=== PATIENT | male | born 1985 | race Caucasian/White ===

== ENCOUNTER 2017-06-13 22:26 | Emergency (ER) | payer OTHER ==
[2017-06-13 22:52] VITALS: BP 171/76; PULSE 80; TEMP 98; BMI 29.1
[2017-06-13] MEDS ORDERED: IBUPROFEN 400 MG TABLET (FP) PO ONE ×2 (23:47→23:56)
[2017-06-13] MEDS ORDERED: BACITRACIN 0.9 GM PACKET ONE (23:52)
[2017-06-14] MEDS ORDERED: IBUPROFEN 600 MG TABLET (FP) PO ONE ×2 (00:23→00:24)
--- NOTE | 2017-06-14 00:40 | PDOC ---
History of Present Illness - General Chief Complaint: Non EmpBld/Body Flud Exposure Stated Complaint: INJURY,EXPOSURE Time Seen by Provider: 06/13/17 23:30 Past History - Past Medical History Allergies/Adverse Reactions: Allergies Allergy/AdvReac Type Severity Reaction Status Date / Time No Known Allergies Allergy Verified 06/13/17 22:52 Home Medications: Ambulatory Orders Ibuprofen 600 mg PO TID PRN #21 tablet 06/14/17 Thyroid Disease: No - Immunization History Immunization Up to Date: Yes - Psycho/Social/Smoking Cessation Hx Anxiety: No Suicidal Ideation: No Smoking History: Never smoked Have you smoked in the past 12 months: No Number of Cigarettes Smoked Daily: 0 Information on smoking cessation initiated: No Hx Alcohol Use: No Drug/Substance Use Hx: No Substance Use Type: None *Physical Exam - Vital Signs Last Vital Signs Temp Pulse Resp BP Pulse Ox 98.0 F 80 18 171/76 100 06/13/17 22:49 06/13/17 22:49 06/13/17 22:49 06/13/17 22:49 06/13/17 22:49 ED Treatment Course - RADIOLOGY Radiology Studies Ordered: Category Date Time Status HAND- LEFT [RAD] Stat Radiology 06/13/17 23:47 Taken - Medications Given in the ED: ED Medications Discontinued Medications Generic Name Dose Route Start Last Admin Trade Name Freq PRN Reason Stop Dose Admin Ibuprofen 800 mg 06/13/17 23:47 06/14/17 00:25 Motrin - PO 06/13/17 23:48 Not Given ONCE ONE Ibuprofen 600 mg 06/14/17 00:24 06/14/17 00:25 Motrin - PO 06/14/17 00:25 600 mg ONCE ONE Administration *DC/Admit/Observation/Transfer Diagnosis at time of Disposition: Thumb injury Qualifiers: Encounter type: initial encounter Laterality: left Qualified Code(s): S69.92XA - Unspecified injury of left wrist, hand and finger(s), initial encounter - Discharge Dispostion Disposition: HOME Condition at time of disposition: Stable - Prescriptions Prescriptions: Ibuprofen 600 mg PO TID PRN #21 tablet PRN Reason: Pain - Referrals - Patient Instructions Printed Discharge Instructions: DI for Hand Injury Additional Instructions: Please take medications as prescribed. Follow up with orthopedics if symptoms persist. If you experience any new or worsening pain, please return to the ER. - Post Discharge Activity Work/School Note: Back to Work
== END 2017-06-14 01:05 | disposition home or self-care (01) ==
LOC: JER 22:26 → JERFT 22:26 → JER 06-14 01:05
DX: Z77.21 Contact with and (suspected) exposure to potentially hazardous body fluids (principal); S69.92XA Unspecified injury of left wrist, hand and finger(s), initial encounter; Y35.891A Legal intervention involving other specified means, law enforcement official injured, initial encounter; Y93.89 Activity, other specified; Y92.9 Unspecified place or not applicable; Y99.0 Civilian activity done for income or pay
CPT/HCPCS: 73130-TC-LT; 99281-25

== ENCOUNTER 2019-01-01 19:34 | Emergency (ER) | payer OTHER ==
[2019-01-01 19:41] VITALS: BP 162/77; PULSE 92; TEMP 98.9; BMI 29.8
[2019-01-01] MEDS ORDERED: IBUPROFEN 400 MG TABLET (FP) PO ONE (19:41)
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
== END 2019-01-01 20:43 | disposition home or self-care (01) ==
LOC: JERFT 19:34
DX: S80.02XA Contusion of left knee, initial encounter (principal); S80.01XA Contusion of right knee, initial encounter; Y35.811A Legal intervention involving manhandling, law enforcement official injured, initial encounter; Y93.89 Activity, other specified; Y92.89 Other specified places as the place of occurrence of the external cause; Y99.0 Civilian activity done for income or pay
CPT/HCPCS: 73564-TC-LT-FY; 73564-TC-RT-FY; 99281-25

== ENCOUNTER 2019-06-19 18:28 | Emergency (ER) | payer OTHER ==
--- NOTE | 2019-06-19 18:31 | PDOC ---
Rapid Medical Evaluation Time Seen by Provider: 06/19/19 18:29 Medical Evaluation: Allergies Allergy/AdvReac Type Severity Reaction Status Date / Time No Known Allergies Allergy Verified 06/27/18 22:09 06/19/19 18:30 HPI: Body fluid exposure without mucous membrane contact PE: L ring finger small speck of blood ORDERS:Nothing pt refusing prophylaxis Discharge Disposition - Diagnosis Exposure to blood or body fluid - Referrals - Patient Instructions - Post Discharge Activity
[2019-06-19 18:44] VITALS: BP 117/72; PULSE 79; TEMP 98.5; BMI 29.8
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
== END 2019-06-19 20:16 | disposition home or self-care (01) ==
LOC: JERFT 18:28 → JER 18:28 → JERFT 20:16
DX: Z77.21 Contact with and (suspected) exposure to potentially hazardous body fluids (principal); X58.XXXA Exposure to other specified factors, initial encounter; Y93.89 Activity, other specified; Y92.89 Other specified places as the place of occurrence of the external cause; Y99.0 Civilian activity done for income or pay; Y35.891A Legal intervention involving other specified means, law enforcement official injured, initial encounter; F17.210 Nicotine dependence, cigarettes, uncomplicated
CPT/HCPCS: 99281-25

== ENCOUNTER 2019-08-30 22:35 | Emergency (ER) | payer OTHER ==
[2019-08-30 22:48] VITALS: BP 136/76; PULSE 85; TEMP 98; BMI 29.8
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
== END 2019-08-30 23:38 | disposition home or self-care (01) ==
LOC: JER 22:35
DX: S49.82XA Other specified injuries of left shoulder and upper arm, initial encounter (principal); M25.512 Pain in left shoulder; M25.531 Pain in right wrist; Y35.811A Legal intervention involving manhandling, law enforcement official injured, initial encounter; Y93.89 Activity, other specified; Y92.89 Other specified places as the place of occurrence of the external cause; Y99.0 Civilian activity done for income or pay
CPT/HCPCS: 99283-25